=== PATIENT | male | born 1955 | race Caucasian/White ===

== ENCOUNTER 2016-12-04 14:37 | Emergency (ER) | payer OTHER, SELFPAY ==
[2016-12-04] MEDS ORDERED: Adacel (T-DAP) 0.5 ML VIAL ONE (14:43)
== END 2016-12-04 15:12 | disposition home or self-care (01) ==
LOC: BURERS 14:37
DX: S51.812A Laceration without foreign body of left forearm, initial encounter (principal); I10 Essential (primary) hypertension; F17.210 Nicotine dependence, cigarettes, uncomplicated; W26.8XXA Contact with other sharp object(s), not elsewhere classified, initial encounter
CPT/HCPCS: 12001; 90715